=== PATIENT | male | born 1970 | race Caucasian/White ===

== ENCOUNTER 2017-08-06 19:23 | Emergency (ER) | payer OTHER ==
[2017-08-06 19:38] VITALS: BP 135/58
[2017-08-06] MEDS ORDERED: Doxycycline 100 MG Cap PO ONE (20:29)
--- NOTE | 2017-08-06 20:43 | EDM.PDOC ---
ED HPI GENERAL MEDICAL PROBLEM - General Chief Complaint: Bite:Animal, Insect Stated Complaint: DEER TICK Time Seen by Provider: 08/06/17 19:31 Source of Information: Reports: Patient History Limitations: Reports: No Limitations - History of Present Illness INITIAL COMMENTS - FREE TEXT/NARRATIVE: 47 years old male patient presented with chief complaint of deer tick bite. He think it happen Friday night and found Friday night so it's been stuck for about 24 hour period. Was not engorged. The think it is for sure deer tick bite was was not in engorged. No erythema. No skin rash. Denies any fever. Denies any headache or visual changes. Denies any body aches or muscle aches or joint aches. Denies any chest pain or shortness of breath. No abdominal pain area or constipation. No urinary symptom. - Related Data Allergies Allergy/AdvReac Type Severity Reaction Status Date / Time morphine Allergy Nausea and Verified 08/06/17 19:39 Vomiting Home Meds: Home Meds Cimetidine [Tagamet Hb] 1 tab PO BID 08/06/17 [History] Fluticasone/Salmeterol [Advair Hfa 230-21 Mcg Inhaler] 1 puff INH DAILY [History] Past Medical History Respiratory History: Reports: Asthma Gastrointestinal History: Reports: GERD Musculoskeletal History: Reports: Back Pain, Chronic, Osteoarthritis - Past Surgical History Neurological Surgical History: Reports: Lumbar Spine Other Neurological Surgeries/Procedures: L4-5 surgery laminectomy Musculoskeletal Surgical History: Reports: Shoulder Surgery Other Musculoskeletal Surgeries/Procedures:: rotator cuff repair mac. back surgery L4-5 Social & Family History - Tobacco Use Smoking Status *Q: Never Smoker - Caffeine Use Caffeine Use: Reports: Energy Drinks - Recreational Drug Use Recreational Drug Use: No ED ROS GENERAL - Review of Systems Review Of Systems: ROS reveals no pertinent complaints other than HPI. ED EXAM, ANIMAL BITE - Physical Exam Exam: See Below Exam Limited By: No Limitations General Appearance: Alert Head: Atraumatic Neck: Normal Inspection Respiratory/Chest: No Respiratory Distress Cardiovascular: Normal Peripheral Pulses GI/Abdominal: Normal Bowel Sounds (Male) Exam: No Hernia, Normal Inspection, Normal Prostate, Circumcised Extremities: Normal Inspection (Dear tick bite on the left arm. No erythema or rash.), Normal Range of Motion, Non-Tender, Normal Capillary Refill, No Pedal Edema Course - Vital Signs Last Recorded V/S: Last Vital Signs Temp 36.4 C 08/06/17 19:36 Pulse 76 08/06/17 19:36 Resp 15 08/06/17 19:36 BP 135/58 L 08/06/17 19:36 Pulse Ox 98 08/06/17 19:36 - Orders/Labs/Meds Orders: Active Orders 24 hr Category Date Time Status LYME AB SCREEN RFLX [REF] Stat Lab 08/06/17 20:29 Ordered Meds: Medications Discontinued Medications Generic Name Dose Route Start Last Admin Trade Name Margot PRN Reason Stop Dose Admin Doxycycline Hyclate 200 mg 08/06/17 20:29 Vibramycin PO 08/06/17 20:30 ONETIME ONE - Re-Assessments/Exams Free Text/Narrative Re-Assessment/Exam: 08/06/17 20:41 Patient was seen and examined shortly after arrival. Examined and stable. Patient was offered prophylaxis 100 mg doxycycline twice a day for 10 days versus 200 mg once . He chews and Given 200 mg doxycycline 1 time. Lyme serology has been drawn. Advised to come back if symptom worsen or started developing a rash or body aches or fever or any other symptom. The patient agrees with the plan. The stable for discharge Departure - Departure Time of Disposition: 20:47 Disposition: DC[facility] 05 Condition: Good Clinical Impression: Tick bite - Discharge Information Referrals: PCP,None [Primary Care Provider] - - My Orders Last 24 Hours: My Active Orders 08/06/17 20:29 LYME AB SCREEN RFLX [REF] Stat - Assessment/Plan Last 24 Hours: My Active Orders 08/06/17 20:29 LYME AB SCREEN RFLX [REF] Stat Plan: Patient was given 200 mg doxycycline Oral one time for prophylaxis. Lyme serology drawn. Advised to come back if symptom worsen.
== END 2017-08-06 21:19 | disposition home or self-care (01) ==
LOC: JP.ED 19:23
DX: S40.862A Insect bite (nonvenomous) of left upper arm, initial encounter (principal); J45.909 Unspecified asthma, uncomplicated; K21.9 Gastro-esophageal reflux disease without esophagitis; Z88.5 Allergy status to narcotic agent; W57.XXXA Bitten or stung by nonvenomous insect and other nonvenomous arthropods, initial encounter
CPT/HCPCS: 36415; 86618; 99283; A9270

== ENCOUNTER 2019-12-07 05:28 | Day surgery (SDC) | payer OTHER ==
[2019-12-07] MEDS ORDERED: Dextrose 5%-Lactated Ringers 1,000 ML IV SCH (06:00)
[2019-12-07] MEDS ORDERED: Glycopyrrolate 0.2 MG/ML 2 ML SDV IVPUSH ONE (07:15)
[2019-12-07] MEDS ORDERED: fentaNYL 100 MCG/2 ML SDV ONE (07:22)
[2019-12-07] MEDS ORDERED: Propofol 200 MG/20 ML SDV ONE (07:22)
[2019-12-07] MEDS ORDERED: Midazolam 1 MG/ML 2 ML SDV ONE (07:22)
[2019-12-07 08:50] VITALS: BP 130/70; PULSE 59
--- NOTE | 2019-12-12 14:00 | OR ---
DATE OF PROCEDURE: 12/07/2019 SURGEON: Chris Hitchcock MD PREOPERATIVE DIAGNOSIS: Gastroesophageal reflux disease becoming refractory to medical management. POSTOPERATIVE DIAGNOSES: 1. Gastroesophageal reflux disease becoming refractory to medical management. 2. Moderate hiatal hernia with ulcerated gastroesophageal reflux disease. OPERATIVE PROCEDURE: Esophagogastroduodenoscopy with: 1. Biopsy of esophagogastric junction with histologic evaluation. 2. Biopsies of antrum for CLOtest. ANESTHESIA: IV sedation. INDICATIONS FOR PROCEDURE: This is a 49-year-old male presenting with several year history of gastroesophageal reflux disease. He has been on omeprazole 20 mg twice a day for several years and now is having more problems with active reflux symptoms. Plan is to proceed with an upper GI endoscopy with biopsies as indicated. Potential risks including bleeding and perforation were discussed, and the patient wishes to proceed. DETAILS OF PROCEDURE: The patient will be taken to the operating room, placed in a left lateral decubitus position. IV sedation was administered after which the upper GI endoscope was passed orally through the length of the esophagus and into the stomach with retroflexion view of the fundus and thereafter through the pyloric channel and into the proximal duodenum. Findings included normal hypopharynx, larynx, upper esophageal sphincter, and esophageal body. At the EG junction, moderate-sized hiatal hernia measuring around 3 to 4 cm was encountered. It was associated with a jj ulcer at the esophagogastric junction as well as marked friability of the area around the esophagogastric junction. No stricturing, plaquing, or gross evidence of neoplasia was seen. The scope was then passed into the stomach with retroflexion view confirming the hiatal hernia. There was no significant inflammation in the remainder of the stomach or duodenum. At this point, biopsy was obtained from the antrum and sent for CLOtest for H. pylori. Multiple biopsies were obtained from esophagogastric junction, sent for histologic evaluation. Minimal bleeding from the biopsy sites was seen and the procedure then concluded. The patient was taken to the recovery room in satisfactory condition. At this point, it is fairly clear the patient has gastroesophageal reflux disease which is complicated by ongoing ulceration despite medical management. We will see the patient back tomorrow along with his to discuss treatment options, which likely will include a Jackson fundoplication. Chris Hitchcock MD /[id number]
== END 2019-12-07 08:50 | disposition home or self-care (01) ==
LOC: JP.SDS 05:28
PROVIDERS: ATTEND Surgery
DX: K21.0 Gastro-esophageal reflux disease with esophagitis (principal); K44.9 Diaphragmatic hernia without obstruction or gangrene; K22.10 Ulcer of esophagus without bleeding; J45.909 Unspecified asthma, uncomplicated; Z79.899 Other long term (current) drug therapy; Z88.5 Allergy status to narcotic agent
CPT/HCPCS: 43239; 87081; 88305; J2250; J2704; J3010; J3490; J7121

== ENCOUNTER 2019-12-21 07:31 | Day surgery (SDC) | payer OTHER ==
[~2019-12-21 07:31] MED LIST: Dexamethasone 4 MG/ML SDV ONE; Glycopyrrolate 0.2 MG/ML 5 ML MDV ONE; Neostigmine Methylsulfate 1 MG/ML 5 ML Syringe ONE; Ondansetron 4 MG/2 ML SDV ONE; Propofol 200 MG/20 ML SDV ONE; Rocuronium 50 MG/5 ML Vial ONE; Succinylcholine 200 MG/10 ML MDV ONE; fentaNYL 250 MCG/5 ML SDV ONE
[2019-12-21] MEDS ORDERED: Acetaminophen 500 MG Tab PO ONE (07:45)
[2019-12-21] MEDS: Dextrose 5%-Lactated Ringers 1,000 ML IV SCH ×3 (07:46→19:04)
[2019-12-21] MEDS ORDERED: diphenhydrAMINE 50 MG/ML SDV IVPUSH PRN (08:17)
[2019-12-21] MEDS ORDERED: Naloxone 0.4 MG/ML SDV IVPUSH PRN (08:17)
[2019-12-21] MEDS ORDERED: Ondansetron 4 MG/2 ML SDV IVPUSH PRN ×2 (08:17→12:21)
[2019-12-21] MEDS ORDERED: diphenhydrAMINE 25 MG Cap PO PRN (08:17)
[2019-12-21] MEDS ORDERED: HYDROmorphone/Normal Saline 15 MG/30 ML PCA IV PRN ×3 (08:17→13:29)
[2019-12-21] MEDS ORDERED: Albuterol/Ipratropium 3.0-0.5 MG/3 ML Neb Soln NEB ONE (08:30)
[2019-12-21] MEDS ORDERED: Ropivacaine 44 ML, dexAMETHasone 8 MG, EPINEPHrine 0.4 MG, Sodium Chloride 0.9% 33.6 ML NERVRT SCH ×4 (09:15)
[2019-12-21] MEDS ORDERED: Naloxone 0.4 MG/ML SDV IV PRN (09:15)
[2019-12-21] MEDS ORDERED: Ketamine 50 MG in Sodium Chloride 0.9% 49.5 ML IV SCH (09:15)
[2019-12-21] MEDS ORDERED: Ketamine 500 MG/5 ML MDV IV SCH (09:15)
[2019-12-21] MEDS ORDERED: Atropine 0.4 MG/ML SDV ONE (09:55)
[2019-12-21] MEDS ORDERED: ePHEDrine 50 MG/ML SDV ONE (09:56)
[2019-12-21] MEDS ORDERED: Sodium Chloride 0.9% 10 ML ONE (09:58)
[2019-12-21] MEDS ORDERED: ceFAZolin 2 GM in Premix Bag 1 BAG IV ONE (10:00)
[2019-12-21] MEDS ORDERED: Lactated Ringers 1,000 ML ONE (10:18)
[2019-12-21] MEDS ORDERED: fentaNYL 100 MCG/2 ML SDV ONE (10:47)
[2019-12-21] MEDS ORDERED: hydrOXYzine HCL 100 MG/2 ML SDV IM PRN (12:20)
[2019-12-21] MEDS ORDERED: Albuterol/Ipratropium 3.0-0.5 MG/3 ML Neb Soln INH PRN (12:21)
[2019-12-21] MEDS ORDERED: Pantoprazole 40 MG Vial IV SCH (14:00)
[2019-12-21] MEDS: Metoclopramide 10 MG/2 ML SDV IV SCH ×2 (14:11→19:45)
[2019-12-21] MEDS: Albuterol/Ipratropium 3.0-0.5 MG/3 ML Neb Soln INH SCH ×2 (14:57→20:18)
[2019-12-21] MEDS: ceFAZolin 2 GM in Premix Bag 1 BAG IV SCH (16:17)
[2019-12-21] MEDS: ADVAIR INH SCH (20:19)
[2019-12-21] MEDS ORDERED: Fluticasone-Salmeterol 55-14 MCG Powder Inhalent INH SCH (21:00)
[2019-12-22] MEDS: ceFAZolin 2 GM in Premix Bag 1 BAG IV SCH ×2 (01:27→08:25)
[2019-12-22] MEDS: Metoclopramide 10 MG/2 ML SDV IV SCH ×2 (01:31→08:26)
[2019-12-22] MEDS: Dextrose 5%-Lactated Ringers 1,000 ML IV SCH (01:32)
[2019-12-22 07:17] VITALS: BP 128/76
[2019-12-22] MEDS: Albuterol/Ipratropium 3.0-0.5 MG/3 ML Neb Soln INH SCH (07:18)
[2019-12-22] MEDS: ADVAIR INH SCH (07:20)
[2019-12-22 07:34] VITALS: PULSE 83
[2019-12-22] MEDS ORDERED: Dextrose 5%-Lactated Ringers 1,000 ML IV SCH (08:15)
[2019-12-22] MEDS ORDERED: HYDROmorphone 2 MG Tab PO PRN (08:15)
[2019-12-22] MEDS ORDERED: Pantoprazole 40 MG Tab.CR PO SCH (09:00)
--- NOTE | 2019-12-22 11:04 | DISCH ---
ADMISSION DIAGNOSIS: Gastroesophageal reflux disease refractory to medical management. DISCHARGE DIAGNOSES: Repair of paraesophageal diaphragmatic hernia with mesh with Jackson fundoplication, biopsy of paraesophageal lymph node, and excision of mediastinal lipoma for paraesophageal hernia with gastroesophageal reflux disease refractory to medical management and paraesophageal nodes and mediastinal lipoma. Date of surgery: 12/21/2019. Surgeon: Chris Hitchcock MD. HISTORY: Jc Lara is a 49-year-old male who has had gastroesophageal reflux disease refractory to medical management. After preoperative evaluation and discussion of possible risks and possible complications, he wished to proceed with surgical procedure. HOSPITAL COURSE: Jc had his surgery on 12/21/2019. He had no operative complications, and on postoperative day #1, he was able to be discharged to home in stable condition. PHYSICAL EXAMINATION: GENERAL: Jc is a 49-year-old male. He is alert and orientated. VITAL SIGNS: Height is 5 feet 9 inches, weight is 191 pounds. TPR is 98.2, 78, 16, blood pressure 128/76. HEENT: Negative. NECK: Supple. HEART: Regular rate and rhythm. LUNGS: Clear. ABDOMEN: Dressings dry and intact. Abdominal binder is on. EXTREMITIES: Without peripheral edema. DISPOSITION: Discharged to home. CONDITION: Stable and improving. FOLLOWUP: Appointment, Chris Hitchcock MD, on 12/29/2019 at 8:30 a.m. HOME MEDICATIONS: 1. Dilaudid 2 mg every 4 hours p.r.n. pain, #28. 2. Omeprazole 20 mg, continue his home dose for 5 days. DIET: Full liquid diet for 2 weeks. ACTIVITY: No lifting greater than 10 pounds for 2 weeks. Other activity: Walk at least 6 times daily inside your home. Driving: Do not drive for 1 week and while on pain medication. Shower/bathing: May shower. DISCHARGE INSTRUCTIONS: Notify provider if any fever, increased pain, nausea, or vomiting. Keep site clean and dry. Wear abdominal binder for 2 weeks and then as tolerated. SPECIAL INSTRUCTIONS: Use incentive spirometer 10 times every hour while awake for 1 week.
--- NOTE | 2019-12-29 14:48 | OR ---
DATE OF PROCEDURE: 12/21/2019 SURGEON: Chris Hitchcock MD PREOPERATIVE DIAGNOSIS: Gastroesophageal reflux disease refractory to medical management. POSTOPERATIVE DIAGNOSES: 1. Paraesophageal diaphragmatic hernia associated with gastroesophageal reflux disease refractory to medical management. 2. Paraesophageal lymphadenopathy. 3. Mediastinal lipoma. OPERATIVE PROCEDURES: Diagnostic laparoscopy with: 1. Repair of paraesophageal diaphragmatic hernia with mesh including Jackson fundoplication (57235). 2. Biopsies of paraesophageal lymph node (42991). 3. Excision of mediastinal lipoma (29612). ANESTHESIA: General. COLLATERAL CLERK: Kirstin Walker PA-C, and TED Fong2. INDICATIONS FOR PROCEDURE: This is a 49-year-old presenting with gastroesophageal reflux disease that has become refractory to medical management. Plan is to proceed with a laparoscopic Jackson fundoplication. Potential risks of the procedure including bleeding, infection, injury to underlying viscera, problems with fundoplication such as dysphagia, gas bloat syndrome, disorders of gastric emptying rate, as well as possible incomplete relief of reflux symptoms were all gone over along with the remote possibility of cardiopulmonary, septic, or hemorrhagic complications leading to , and the patient wishes to proceed. DETAILS OF PROCEDURE: The patient was taken to the operating room and placed in a supine position. After general endotracheal anesthesia was induced, the patient was converted to a lithotomy position and the abdomen prepped and draped. 15 cm inferior and 5 cm left of the xiphoid process, transverse incision was made and the peritoneal cavity entered under direct vision with an Optiview trocar, inflated to 15 mmHg pressure with CO2. Laparoscope was then reinserted. No underlying trocar insertion site injuries were seen. Following this, 4 additional trocars were placed across the upper and mid abdomen and bilateral transversus abdominis plane blocks were then placed. With the liver being elevated, the patient was noted to have a fairly large paraesophageal diaphragmatic hernia with perigastric fat and fundus along with a tongue of omentum in a plane anterior to the course of the esophagus. The hernia was reduced at this point and the patient was noted to have significantly enlarged lymph node on the anterior aspect of the distal-most esophagus, this was excised, sent as a separate specimen. Peritoneum over the anterior aspect of the esophagogastric junction was then divided as was the peritoneum medial to the right and left crura. This allowed dissection of the esophagus away from the crura and retroesophageal window was eventually established. This dissection was with combination of Harmonic scalpel dissection and blunt dissection. Once the esophagus was encircled, further attachments were divided with Harmonic Scalpel such that a 4 to 5 cm intraabdominal esophageal length was present. During the course of the dissection, a mediastinal lipoma was encountered, and this was excised and sent as a separate specimen. The posterior crural repair was then accomplished with 0 Ethibond sutures reinforced with PTFE pledgets and then due to the quite wide nature of the defect, Phasix ST mesh was cut in a horseshoe type configuration such that it would lie over the crural repair and slightly up onto the crura on each side and was fixed in position with some titanium tacking screws. Beginning in the mid greater curvature of the stomach, the omentum was divided away from that edge and this dissection continued proximally, divided the short gastric vessels including the highest and posterior short gastric vessels. The medial aspect of fundus was then dissected away from the left crura such that it was maximally mobile. The fundus was then retrieved through the retroesophageal window. After this, Anesthesia placed a guidewire orally through the length of the esophagus into the stomach. Over this, a 54- Croatian Savary dilator was placed. A 2 cm 3-stitch fundoplication was then accomplished with 0 Ethibond sutures reinforced with PTFE pledgets. Each of the sutures included bites of the underlying esophagus to help fix it in position and then 2 sutures were then placed between the fundoplication and the overlying diaphragm with the same stitch pledget combination to help fix it in position and avoid sliding down onto the stomach. At this point, no further problems were noted. Trocars were removed and the peritoneal cavity deflated. Incisions were closed with 4-0 Vicryl skin stitch. The patient was taken to the recovery room in satisfactory condition. Physician emergency medicine physician assistant, Kirstin Walker, played an essential role in assisting in this case, helping to position the patient, retract structures as needed, as well as suturing and cutting sutures when indicated. Her presence improved patient safety and decreased operative time. Crhis Hitchcock MD /[id number]
== END 2019-12-22 10:50 | disposition home or self-care (01) ==
LOC: JP.SDS 07:31 → JP.2SS 10:55 → JP.SDS 12-22 10:50
PROVIDERS: ATTEND Surgery
DX: K44.9 Diaphragmatic hernia without obstruction or gangrene (principal); K21.9 Gastro-esophageal reflux disease without esophagitis; R59.0 Localized enlarged lymph nodes; D17.1 Benign lipomatous neoplasm of skin and subcutaneous tissue of trunk; J45.909 Unspecified asthma, uncomplicated; Z88.5 Allergy status to narcotic agent; Z79.899 Other long term (current) drug therapy
CPT/HCPCS: 39220; 43282; 49321; 88304; 88305; 94640; 94762; A9270; C1713; C1781; C9113; J0171; J0330; J0461; J0690; J1100; J1170; J2405; J2704; J2710; J2765; J2795; J3010; J3490; J7050; J7120; J7121; J7620-GY

== ENCOUNTER 2020-02-28 06:38 | Day surgery (SDC) | payer OTHER ==
[2020-02-28] MEDS ORDERED: Dextrose 5%-Lactated Ringers 1,000 ML IV SCH (07:00)
[2020-02-28] MEDS ORDERED: fentaNYL 100 MCG/2 ML SDV ONE (07:11)
[2020-02-28] MEDS ORDERED: Midazolam 1 MG/ML 2 ML SDV ONE (07:11)
[2020-02-28] MEDS ORDERED: Propofol 200 MG/20 ML SDV ONE (07:11)
[2020-02-28] MEDS ORDERED: Glycopyrrolate 0.2 MG/ML 2 ML SDV IVPUSH ONE (07:30)
[2020-02-28] MEDS ORDERED: Dexamethasone 4 MG/ML SDV ONE (07:58)
[2020-02-28 09:09] VITALS: BP 124/67; PULSE 56
--- NOTE | 2020-03-05 10:33 | OR ---
DATE OF PROCEDURE: 02/28/2020 SURGEON: Chris Hitchcock MD PREOPERATIVE DIAGNOSIS: Persistent dysphagia, status post Jackson fundoplication. POSTOPERATIVE DIAGNOSIS: Persistent dysphagia, status post Jackson fundoplication. OPERATIVE PROCEDURE: Upper GI endoscopy with dilation of esophagogastric junction (78886). ANESTHESIA: IV sedation. INDICATIONS FOR PROCEDURE: The patient is status post Jackson fundoplication on 12/21/2019. After initially doing well, at the 2-week check, he had been having problems with some persistent dysphagia. He has had courses of Medrol Dosepak. The last course which he did not feel was helpful to much of an extent. Plan is to proceed with upper GI endoscopy with dilation as indicated. Potential risks including bleeding and perforation, possibility of this hastening recurrence of the reflux either immediately or over time were reviewed, and the patient wishes to proceed. DETAILS OF PROCEDURE: The patient was taken to the operating room, placed in a left lateral decubitus position. IV sedation was administered, after which the upper GI endoscope was passed orally through the length of the esophagus and into the stomach and from there through the pyloric channel into the proximal duodenum. Findings included no significant inflammation at the area of the esophagogastric junction. As is typical in these cases, with air insufflation, there is a visible wide opening directly into the stomach, despite the patient's symptoms of dysphagia. At this point, then the scope was positioned in the stomach and the guidewire for the Savary dilator system placed and the scope withdrawn. Initially, a 54-Vietnamese Savary dilator was placed over the guidewire. This met no significant unusual resistance, therefore this was removed and then a 60- Vietnamese dilator passed. This was held in position for 1 minute, after which the dilator and wire were removed and the procedure was then concluded. The patient received 4 mg of Decadron prior to the procedure today and will begin a Medrol Dosepak tomorrow to try to reduce the inflammation. We will see him back in 3 to 4 weeks for a recheck. Chris Hitchcock MD /[id number]
== END 2020-02-28 09:10 | disposition home or self-care (01) ==
LOC: JP.SDS 06:38
PROVIDERS: ATTEND Surgery
DX: R13.10 Dysphagia, unspecified (principal); J45.909 Unspecified asthma, uncomplicated; Z98.890 Other specified postprocedural states
CPT/HCPCS: 43248; J1100; J2250; J2704; J3010; J3490; J7121

== ENCOUNTER 2021-07-03 06:55 | Day surgery (SDC) | payer OTHER ==
[2021-07-03] MEDS ORDERED: Propofol 200 MG/20 ML SDV ONE (07:25)
[2021-07-03] MEDS ORDERED: fentaNYL 100 MCG/2 ML SDV ONE (07:25)
[2021-07-03] MEDS ORDERED: Midazolam 1 MG/ML 2 ML SDV ONE (07:25)
[2021-07-03] MEDS ORDERED: Sodium Chloride 0.9% 1,000 ML IV SCH (08:00)
[2021-07-03 09:35] VITALS: BP 107/71; PULSE 55
--- NOTE | 2021-07-04 07:32 | OR ---
DATE OF PROCEDURE: 07/03/2021 SURGEON: John Smith MD PROCEDURE: Colonoscopy. FINDINGS: Normal colonoscopy. PREOPERATIVE DIAGNOSIS: Screening colonoscopy. POSTOPERATIVE DIAGNOSIS: Screening colonoscopy. RISKS: Risks, benefits, alternatives, and limitations including, but not limited to infection, bleeding, perforation, false positives, false negatives were explained to the patient who wished to proceed. PROCEDURE IN DETAIL: The patient was placed in left lateral decubitus position. Digital rectal exam was performed without abnormality. Scope was introduced and advanced atraumatically to the ileocecal valve. A photo was taken of the appendiceal orifice. The scope was brought back to the ascending, transverse, descending colon, and retroflexed. No evidence of old or new blood. No masses. No polyps. No diverticulosis. No colitis. No abnormalities on retroflexion. Greater than 8 minutes was spent removing scope. Prep was acceptable, approximately 90% of the luminal surface could be seen. The patient tolerated the procedure well. John Smith MD /[id number]
== END 2021-07-03 09:41 | disposition home or self-care (01) ==
LOC: JP.SDS 06:55
PROVIDERS: ATTEND Surgery
DX: Z12.11 Encounter for screening for malignant neoplasm of colon (principal); E78.5 Hyperlipidemia, unspecified; K21.9 Gastro-esophageal reflux disease without esophagitis; J45.909 Unspecified asthma, uncomplicated; Z88.5 Allergy status to narcotic agent
CPT/HCPCS: 45378; J2250; J2704; J3010; J7030

== ENCOUNTER 2024-08-22 08:59 | Emergency (ER) | payer OTHER ==
[2024-08-22 09:23] VITALS: BP 114/68; PULSE 58
[2024-08-22 10:43] LABS: LYME AB IgG Negative (Negative)
[2024-08-22 10:44] LABS: LYME AB IgM Negative (Negative)
[2024-08-25 15:41] LABS: ANAPLASMA PHAGOCYTOPHILUM PCR Not Detected; BABESIA MICROTI BY PCR Not Detected; BABESIA SPECIES BY PCR Not Detected; EHRLICHIA CHAFFEENSIS BY PCR Not Detected; EHRLICHIA EWINGII/CANIS BY PCR Not Detected; EHRLICHIA MURIS-LIKE BY PCR Not Detected
== END 2024-08-22 10:24 | disposition home or self-care (01) ==
LOC: JP.ED 08:59
DX: S50.362A Insect bite (nonvenomous) of left elbow, initial encounter (principal); S90.561A Insect bite (nonvenomous), right ankle, initial encounter; S70.362A Insect bite (nonvenomous), left thigh, initial encounter; K21.9 Gastro-esophageal reflux disease without esophagitis; Z79.899 Other long term (current) drug therapy; Z88.5 Allergy status to narcotic agent; Z88.6 Allergy status to analgesic agent; W57.XXXA Bitten or stung by nonvenomous insect and other nonvenomous arthropods, initial encounter
CPT/HCPCS: 36415; 86618; 87468; 87469; 87484; 87798; 99282; 99283